=== PATIENT | male | born 1935 | race Caucasian/White ===

== ENCOUNTER 2018-06-20 17:44 | Inpatient (IN) | payer MEDICARE ==
[2018-06-20] MEDS ORDERED: Diltiazem 125 MG/25 ML ONE (18:10)
--- NOTE | 2018-06-20 18:31 | PDOC.FPRHP ---
- History of Present Illness Chief Complaint: Weakness, afib History of Present Illness: 83 yo M with PMH gouth, GERD, dementia, HTN, hypothyroid is transferred from [place] ED for Afib with RVR. History obtained from son, Shaw, and patient. 3 week history of generalized weakness, fatigue. Had a fall a couple weeks ago. Had appt with [facility] today today discuss new LE edema and was sent to ED from there. Asymptomatic. Denies CP, palpitations, SOB. Patient is forgetful, repeats himself. Patient lives at home in [place] with sonShaw [phone]. ED Course: Therapeutic lovenox, dilt drip - Allergies/Adverse Reactions Allergies Allergy/AdvReac Type Severity Reaction Status Date / Time ciprofloxacin Allergy Verified 06/20/18 20:51 Penicillins Allergy Verified 06/20/18 20:51 Sulfa (Sulfonamide Allergy Verified 06/20/18 20:51 Antibiotics) - Home Medications Medication Instructions Recorded Confirmed Type Allopurinol 300 mg PO DAILY 06/21/18 06/21/18 History Benazepril HCl 10 mg PO DAILY 06/21/18 06/21/18 History Cyclobenzaprine [Flexeril] 10 mg PO TID 06/21/18 06/21/18 History Fish Oil 1,000 mg PO DAILY 06/21/18 History Glucosamine HCl 500 mg PO DAILY 06/21/18 06/21/18 History Ibuprofen 200 mg PO TID 06/21/18 06/21/18 History Levothyroxine Sodium 50 mcg PO DAILY 06/21/18 06/21/18 History Memantine HCl [Namenda] 5 mg PO BID 06/21/18 06/21/18 History Multivit-Min/FA/Lycopen/Lutein 1 each PO DAILY 06/21/18 06/21/18 History [Centrum Silver Tablet] - History PMHx: gout, HTN, Alzheimer's, CKD2, hypothyroid, tinnitus PSHx: appendectomy, hernia x2 FHx: HTN Social: Quit smoking in 1970s. No drug use. Drinks a couple beers, 3 times/wk. - Review of Systems General: reports: fatigue. denies: fever/chills, weight/appetite/sleep changes Eyes: denies: vision changes Respiratory: denies: cough, congestion, shortness of breath Cardiovascular: reports: edema. denies: chest pain, palpitation, orthopnea Gastrointestinal: reports: constipation. denies: nausea, vomiting, diarrhea, abdominal pain Genitourinary: denies: dysuria Skin: denies: rashes Musculoskeletal: reports: swelling. denies: pain Neurological: reports: weakness. denies: syncope - Vital signs BP: 166/124, Pulse: 110, Resp: 18, Temp: 98.0 (Oral), Pain: 0, O2 sat: 96 on Room Air, Weight 70 kg - Physical Exam Constitutional: NAD, other (oriented to person. Knows month and day of week but not year. Not oriented to place.) HEENT: normocephalic and atraumatic, PERRLA, EOMI, TM's clear and intact, MMM, oropharynx clear Heart: normal S1/S2 (irregular), pulses present, other (1+ pitting edema BLE) Lungs: CTAB, no respiratory distress, no wheezing Abdomen: soft, non-tender, bowel sounds present Musculoskeletal: normal structure, normal tone Neurological: CN II-XII intact, normal sensation, other (5/5 muscle strength BUE , BLE) Skin: no rash/lesions, good turgor, capillary refill <2 seconds Heme/Lymphatic: no unusual bruising or bleeding FMR H&P: A/P - Plan 83 yo M with PMH hypothyroid, HTN, dementia presents with generalized weakness, mild BLE edema and is admitted for new a fib with RVR. New onset a fib with RVR - Per ED check out, rate was 135-140 before starting dilt drip. Rate now 115- 120s - Continue therapeutic lovenox and dilt drip - Ordered TSH, echo - Trop indeterminate, likely 2/2 demand. Will continue to trend. - Monitor on telemetry - Patient asymptomatic and otherwise stable VS - Plan to consult cardiology in am DEUCE on CKD2 - Cr 1.72 - will give 500mL bolus then continue maintenance fluids. Will give additional bolus as needed Elevated BNP - Also has new onset edema. Strict I/Os, echo as above - with IVF will monitor for signs of volume overload Hypercalcemia - fluids as above - Albumin normal. Will recheck in am along with PTH, phos. Gout - continue home allopurinol - Is on ibuprofen at home. Will continue for now, monitor Cr, and discontinue if needed. Hypothyroid - check TSH - continue home synthroid Dementia - continue home namenda HTN - continue home benazapril Diet: HH Code: FULL Ppx: on therapeutic lovenox Dispo: admit to tele for observation PCP: [facility] Case discussed with Dr. Pope MATSON H&P: Upper Level - Pertinent history 83 yo M with PMHx of reported Alzheimer's dementia presents as [facility] from [place] for a-fib with RVR. Patient is unable to recall events of the day but says he has been feeling a little off. Denies any current, pain, or discomfort. When asked about code status he says "it's written down somewhere" and that his son Shaw would be his primary decision maker. - Pertinent findings VS reviewed - a fib with RVR (rate 90-130), BP improved Gen: awake, alert, oriented x1 HEENT: NCAT, MMM, PERRL, trachea midline, no JVD CV: irregularly irregular rhythm, no murmur noted RESP: CTAB ABD: soft, NTND EXT: 2+ edema to below knee SKIN: no rashes or lesions NEURO: CN intact, oriented x1, strength 5/5 throughout, sensation intact throughout - Plan Date/Time: 06/20/18 1831 83 yo M with PMHx HTN and Alzheimer's disease here with new-onset a fib with RVR 1. A fib with RVR - Dilt drip started in ED - Monitor on tele - Trend trops - Cards consult in a.m. 2. Normocytic anemia - Consider iron studies, could preciptate a fib 3. Hypercalcemia - Fluids, repeat in a.m. with PTH - WNL when checked last fall 4. Elevated BNP - Echo - No known h/o heart failure 5. DEUCE - Gentle fluids with unknown heart function - Contiue to monitor 6. Indet trop - No chest pain - Will continue to trend - EKG a fib with RVR 7. Hypothyroid, gout, GERD, Alzheimer's - see Dr. Garay's note I, Fadia Rodriguez MD, PGY-3, have evaluated this patient and agree with findings/ plan as outlined by internet cafe manager resident. Pertinent changes/additions are listed here.
[2018-06-20] MEDS ORDERED: Acetaminophen 325 MG TAB PO PRN (19:44)
[2018-06-20] MEDS ORDERED: Senokot S 8.6-50 MG TAB PO PRN (19:44)
[2018-06-20] MEDS ORDERED: Ondansetron ODT 4 MG TAB PO PRN (19:44)
[2018-06-20] MEDS ORDERED: Lactated Ringer's 500 ML IV SCH (20:00)
[2018-06-20] MEDS ORDERED: Lactated Ringer's 1,000 ML IV SCH (20:00)
[2018-06-20 20:23] VITALS: BMI 22.6
[2018-06-20] MEDS ORDERED: Sodium Chloride 0.9% 500 ML IVPB SCH (21:45)
[2018-06-20] MEDS: Enoxaparin Sodium 80 MG/0.8 ML SYRINGE SC SCH (22:08)
[2018-06-20 22:18] LABS: Troponin I 0.041 ng/mL (< 0.028)
[2018-06-20] MEDS: Sodium Chloride 0.9% 1,000 ML IV SCH (22:32)
[2018-06-21] MEDS ORDERED: Melatonin 3 MG TAB PO PRN (00:29)
[2018-06-21 01:07] LABS: Troponin I 0.048 ng/mL (< 0.028)
[2018-06-21] MEDS: Levothyroxine Sodium 50 MCG TAB PO SCH (03:30)
[2018-06-21 05:05] LABS: #Eosinphils 0.1 thou/uL (0.0-0.7); #Lymphocytes 1.4 thou/uL (1.20-3.40); #Monocytes 0.6 thou/uL (0.11-0.59); #Neutrophils 1.7 thou/uL (1.40-6.50); %Basophils 0.8 % (0.0-1.0); %Eosinophils 2.2 % (0.0-10.0); %Lymphocytes 37.7 % (21.0-51.0); %Monocytes 14.9 % (0.0-10.0); %Neutrophils 44.3 % (42.0-75.0); Hemoglobin 10.5 g/dL (14.0-18.0); Mean Corpuscular HGB CONC 32.8 g/dL (32.0-36.0); Mean Corpuscular Hemoglobin 31.7 pg (27.0-31.0); Mean Corpuscular Volume 96.7 fL (78.0-98.0); Mean Platelet Volume 6.7 fL (7.4-10.4); Platelet Count 173 thou/uL (130-400); Red Blood Cell (RBC) Count 3.31 mill/uL (4.70-6.10); White Blood Cell (WBC) Count 3.7 thou/uL (4.8-10.8)
[2018-06-21 05:14] LABS: Anion Gap 13 mmol/L (10-20); BUN (Urea Nitrogen) 25 mg/dL (8.4-25.7); Calc. Creatinine Clearance 37 mL/min (70-130); Calcium 11.6 mg/dL (7.8-10.44); Carbon Dioxide 24 mmol/L (23-31); Chloride 109 mmol/L (98-107); Estimated GFR-MDRD 47; Glucose 75 mg/dL (83-110); Potassium 3.8 mmol/L (3.5-5.1); Sodium 142 mmol/L (136-145)
[2018-06-21 05:15] LABS: Phosphorus 3.2 mg/dL (2.3-4.7)
--- NOTE | 2018-06-21 06:43 | PDOC.FM ---
- Subjective Subjective: Alert and oriented only to person and place. Not to time or situation. Denies chest pain, shortness of breath, heart palpitations. No overnight events. - Objective MAR Reviewed: Yes Vital Signs & Weight: Vital Signs (12 hours) Temp Pulse Resp BP Pulse Ox 06/21/18 03:26 97.7 F 83 16 105/63 92 L 06/20/18 20:26 97.5 F L 94 16 137/73 94 L Weight Weight 67.495 kg I&O: 06/19/18 06/20/18 06/21/18 06:59 06:59 06:59 Intake Total 1705 Output Total 175 Balance 1530 Result Diagrams: 06/21/18 04:27 06/21/18 04:27 Phys Exam - Physical Examination Constitutional: NAD HEENT: moist MMs Neck: supple Respiratory: no wheezing, clear to auscultation bilateral Afib, systolic murmur Gastrointestinal: soft, non-tender, positive bowel sounds Musculoskeletal: no edema Neurological: moves all 4 limbs Psychiatric: normal affect Deviation from normal: A&O to person and place only Skin: no rash Dx/Plan - Plan Plan: 83 yo M with PMH hypothyroid, HTN, dementia presents with generalized weakness, mild BLE edema and is admitted for new a fib with RVR. New onset a fib with RVR - Rate 80-90's - Continue therapeutic lovenox and dilt drip - Nml TSH, echo pending - Trops indeterminate, likely 2/2 demand. - Consulted Cardiology DEUCE on CKD2 - Improving, continue to monitor with daily BMP Elevated BNP - Strict I/Os - Echo ordered - Monitor for signs of volume overload Hypercalcemia, resolved Gout - Continue home Ibuprofen and Allopurinol. - Monitor Cr Hypothyroid - TSH nml - Continue home synthroid Dementia - Continue home namenda HTN - Continue home benazapril Code Status: FULL DVT ppx: on therapeutic lovenox PCP: Dr Gasca Addendum - Attending - Attending Attestation Date/Time: 06/21/18 8121 I personally evaluated the patient and discussed the management with Dr. March. I agree with the History, Examination, Assessment and Plan documented above with any addition or exceptions noted below. The patient has new onset atrial fibrillation on a diltiazem drip. Rate is controlled. Echo pending. Cardiology is being consulted. Will continue anticoagulation.
[2018-06-21] MEDS: Sodium Chloride 0.9% 1,000 ML IV SCH ×2 (07:04→07:24)
[2018-06-21] MEDS: Allopurinol 300 MG TAB PO SCH (08:21)
[2018-06-21] MEDS: Ibuprofen 200 MG TAB PO SCH ×3 (08:22→21:58)
[2018-06-21] MEDS: Multivitamins CHEW w/Iron Tablet PO SCH ×2 (08:22→08:23)
[2018-06-21] MEDS: Cyclobenzaprine 10 MG TAB PO SCH ×3 (08:22→21:58)
[2018-06-21] MEDS: Enoxaparin Sodium 80 MG/0.8 ML SYRINGE SC SCH (08:22)
[2018-06-21] MEDS ORDERED: Prevnar 13-Val Conj/PF 0.5 ML SYRINGE IM ONE (09:00)
[2018-06-21 12:41] LABS: Reference Lab Name LABCORP
--- NOTE | 2018-06-21 14:58 | CON ---
DATE OF CONSULTATION: 06/21/2018 REASON FOR CONSULTATION: Atrial fibrillation with RVR. HISTORY OF PRESENT ILLNESS: Mr. Mckeon is a pleasant 83-year-old black gentleman, who comes to the hospital for having lower extremity edema and worsening generalized weakness. He was seen by his PCP in [place], and he was found to be in atrial fibrillation with RVR, so transferred over for further evaluation and care. He was started on a diltiazem drip and is better rate controlled now. PAST MEDICAL HISTORY: 1. History of gout. 2. Hypertension. 3. Alzheimer dementia, mild. 4. Hypothyroidism. 5. Tinnitus. PAST SURGICAL HISTORY: 1. Appendectomy. 2. Hernia surgery x2. FAMILY HISTORY: Noncontributory. SOCIAL HISTORY: Quit smoking in 1970s; otherwise, no tobacco or drugs. Drinks 1 or 2 beers about 3 times a week. OUTPATIENT MEDICATIONS: 1. Allopurinol 300 mg a day. 2. Benazepril 10 mg a day. 3. Cyclobenzaprine 10 mg t.i.d. 4. Fish oil. 5. Glucosamine. 6. Ibuprofen. 7. Levothyroxine 50 mcg a day. 8. Memantine. 9. Multivitamin daily. ALLERGIES: 1. CIPRO. 2. PENICILLIN. 3. SULFA DRUGS. REVIEW OF SYSTEMS: A 12-point review of systems was done and was found to be negative unless stated in history of present illness. PHYSICAL EXAMINATION: VITAL SIGNS: Temperature 97.5, pulse 89, respiratory rate 16, saturating 95% on room air, and blood pressure 107/63. GENERAL: Awake, alert, and oriented x3, in no distress. HEENT: Normocephalic and atraumatic. NECK: Supple. LUNGS: Clear. CARDIOVASCULAR: S1 and S2. No S3 or S4. Irregularly irregular heart rate in the 80s to low 100s. ABDOMEN: Soft. Positive bowel sounds. EXTREMITIES: No edema. SKIN: Warm and dry. LABORATORY DATA: Laboratory work was reviewed. CBC with a white count of 3, hemoglobin of 10, hematocrit of 32, and platelet count of 173. Chemistry with creatinine of 1.43, GFR of 47. ASSESSMENT: 1. Atrial fibrillation with rapid ventricular response, new onset. 2. Hypertension. PLAN: 1. We spoke with Mr. Mckeon and his family, he has a daughter and a grandson in the room, about possibly doing rate control versus rhythm control with cardioversion. He would prefer to do rhythm control. He would like to proceed with DWAINE cardioversion. We will plan on continuing full anticoagulation. I will switch him to Ronnie colón, so he does not have to get shots anymore, and I will look at his echocardiogram, and depending on what his LV function is, we will decide either on flecainide or just amiodarone if he has LV dysfunction. 2. We spoke in length about the risks and benefits of the procedure. Risks included, but not limited to VT, need for repeat cardioversions, esophageal rupture, teeth injury, vocal cord injury. The patient understands and verbalized understanding of this and agrees to proceed. 3. Plan on the DWAINE and cardioversion tomorrow. Job ID: [id number]
[2018-06-21] MEDS ORDERED: Flecainide 50 MG TAB PO SCH (15:00)
[2018-06-21] MEDS: Flecainide 50 MG TAB PO SCH (21:58)
[2018-06-21] MEDS: Apixaban 2.5 MG TAB PO SCH (21:58)
--- NOTE | 2018-06-22 06:18 | PDOC.FM ---
- Subjective Subjective: Feeling "very average." Just came back from cardioversion. Now in NSR. Denies SOB, chest pain. - Objective MAR Reviewed: Yes Vital Signs & Weight: Vital Signs (12 hours) Temp Pulse Resp BP Pulse Ox 06/22/18 04:00 94 18 130/71 06/21/18 23:29 105 H 138/75 06/21/18 20:00 92 L 06/21/18 19:29 97.5 F L 109 H 16 128/82 92 L Weight Weight 67.495 kg I&O: 06/20/18 06/21/18 06/22/18 06:59 06:59 06:59 Intake Total 1705 Output Total 175 Balance 1530 Result Diagrams: 06/22/18 11:28 06/22/18 11:28 Phys Exam - Physical Examination Constitutional: NAD HEENT: moist MMs Neck: supple Respiratory: no wheezing, clear to auscultation bilateral Cardiovascular: RRR Gastrointestinal: soft, non-tender, positive bowel sounds Musculoskeletal: no edema Neurological: moves all 4 limbs Psychiatric: normal affect, A&O x 3 Skin: no rash Dx/Plan (1) Afib Code(s): I48.91 - UNSPECIFIED ATRIAL FIBRILLATION Status: Acute - Plan Plan: 83 yo M with PMH hypothyroid, HTN, dementia presents with generalized weakness, mild BLE edema and is admitted for new a fib with RVR. New onset a fib with RVR - Rate low 100's - Continue therapeutic lovenox and dilt drip - Nml TSH, echo: nml EF in Afib - Trops indeterminate, likely 2/2 demand. - Consulted Cardiology, apprec recs - On Eliquis for cardioversion today DEUCE on CKD2 - Improving, continue to monitor with daily BMP Elevated BNP - Strict I/Os, daily wts - Echo: EF 60-65%, mild MR, TR. Mild AV sclerosis - Monitor for signs of volume overload Hypercalcemia, resolved Gout - Continue home Ibuprofen and Allopurinol. - Monitor Cr Hypothyroid - TSH nml - Continue home synthroid Dementia - Continue home namenda HTN - Continue home benazapril Code Status: FULL DVT ppx: on therapeutic lovenox PCP: Dr Gasca Addendum - Attending - Attending Attestation Date/Time: 06/22/18 1014 I personally evaluated the patient and discussed the management with Dr. March. I agree with the History, Examination, Assessment and Plan documented above with any addition or exceptions noted below. The patient went for cardioversion this morning and is in a sinus rhythm. will f/u cardiology but may d/c if cleared by cards.
[2018-06-22] MEDS: Levothyroxine Sodium 50 MCG TAB PO SCH (07:03)
[2018-06-22] MEDS ORDERED: PROPOFOL 20 ML ONE (07:39)
[2018-06-22] MEDS: Cyclobenzaprine 10 MG TAB PO SCH ×2 (08:49→15:08)
[2018-06-22] MEDS: Apixaban 2.5 MG TAB PO SCH (08:49)
[2018-06-22] MEDS: Flecainide 50 MG TAB PO SCH (08:49)
[2018-06-22] MEDS: Ibuprofen 200 MG TAB PO SCH ×2 (08:49→15:08)
[2018-06-22] MEDS: Allopurinol 300 MG TAB PO SCH (08:49)
[2018-06-22] MEDS: Multivitamins CHEW w/Iron Tablet PO SCH (08:50)
[2018-06-22 11:38] LABS: #Eosinphils 0.1 thou/uL (0.0-0.7); #Lymphocytes 0.9 thou/uL (1.20-3.40); #Monocytes 0.4 thou/uL (0.11-0.59); #Neutrophils 1.1 thou/uL (1.40-6.50); %Basophils 1.3 % (0.0-1.0); %Eosinophils 2.5 % (0.0-10.0); %Lymphocytes 36.4 % (21.0-51.0); %Monocytes 14.6 % (0.0-10.0); %Neutrophils 45.2 % (42.0-75.0); Mean Corpuscular HGB CONC 33.1 g/dL (32.0-36.0); Mean Corpuscular Hemoglobin 31.7 pg (27.0-31.0); Mean Corpuscular Volume 95.6 fL (78.0-98.0); Mean Platelet Volume 6.1 fL (7.4-10.4); Platelet Count 154 thou/uL (130-400); Red Blood Cell (RBC) Count 3.47 mill/uL (4.70-6.10); White Blood Cell (WBC) Count 2.4 thou/uL (4.8-10.8)
[2018-06-22 12:10] LABS: ALT (SGPT) 14 U/L (8-55); AST (SGOT) 17 U/L (5-34); Albumin 3.1 g/dL (3.4-4.8); Alkaline Phosphatase 84 U/L (40-150); Anion Gap 14 mmol/L (10-20); BUN (Urea Nitrogen) 21 mg/dL (8.4-25.7); Bilirubin, Total 0.7 mg/dL (0.2-1.2); Calc. Creatinine Clearance 34 mL/min (70-130); Calcium 11.5 mg/dL (7.8-10.44); Carbon Dioxide 23 mmol/L (23-31); Chloride 109 mmol/L (98-107); Estimated GFR-MDRD 43; Globulin 2.3 g/dL (2.4-3.5); Glucose 106 mg/dL (83-110); Potassium 3.5 mmol/L (3.5-5.1); Protein, Total 5.4 g/dL (5.8-8.1); Sodium 142 mmol/L (136-145)
[2018-06-22] MEDS ORDERED: Lidocaine 1% PF 5 ML VIAL ONE (15:29)
[2018-06-22] MEDS ORDERED: PROPOFOL 200 MG/20 ML VIAL ONE (15:29)
[2018-06-22 15:31] VITALS: BP 152/78; TEMP 98
--- NOTE | 2018-06-22 15:44 | ECHO ---
DATE OF SERVICE: 06/22/18 PREPROCEDURE DIAGNOSIS: Atrial fibrillation with RVR. The Anesthesiology department provided with sedation for the patient. Please see their notes for det ails. After adequate sedation was achieved, transesophageal probe was inserted into the mouth and into the esophagus. Multiplanar views were obtained. Left ventricle is normal size, normal wall thickness. Systolic function appears to be normal. Estima shannon EF at about 55%. Left atrium is mildly dilated. Right atrium is mildly dilated. The right ventricle is normal size with normal systolic function. The left atrial appendage is a large appendage with no evidence of mass or thrombus. Aortic valve is heavily calcified with reduced cusp opening. Planimetry of the valve shows the valve area of 1.6 cm/s. Mild aortic valve stenosis. There is also mild aortic insufficiency. Mitral valve is structurally normal. There is mild MR. Tricuspid valve is structurally normal. There is mild TR. Pulmonary valve is structurally normal. CONCLUSIONS: 1. Normal LV systolic function, EF at 55%. 2. Biatrial enlargement. 3. Left atrial appendage without any mass or thrombus. 4. Calcified aortic valve with mild aortic stenosis and mild aortic insufficiency. 4. Mild MR. 5. Mild TR.
--- NOTE | 2018-06-22 15:51 | OP ---
DATE OF PROCEDURE: 06/22/18 PROCEDURE DIAGNOSIS: Atrial flutter. PROCEDURES PERFORMED: Direct current cardioversion. SUMMARY: The patient is a pleasant 83-year-old white gentleman who was brought down to the procedural area for a planned DWAINE cardioversion. Please see DWAINE report for details. After adequate anesthesia was achieved by the anesthesia department, one single synchronized shock wa s delivered at 100 joules successfully converting him from atrial fibrillation into sinus rhythm with PACs. The patient tolerated the procedure well. RECOMMENDATIONS: 1. Continued antiarrhythmic and anticoagulation. 2. Follow-up in the office in one month.
--- NOTE | 2018-06-25 10:04 | DIS ---
DATE OF ADMISSION: 06/21/2018 DATE OF DISCHARGE: 06/22/2018 RESIDENT: Antoinette March MD, PGY-1. ADMITTING ATTENDING: Aleksandr Patricio MD DISCHARGE ATTENDING: Gloria Dyer MD CONSULTS: Cardiology. PROCEDURES: 1. Echocardiogram, EF 60% to 65%, atrial fibrillation during study. Moderately dilated left atrium. Mitral annular calcification. Mild mitral and tricuspid regurgitation. Mild aortic valve stenosis. 2. DWAINE with cardioversion. PRIMARY DIAGNOSIS: New onset atrial fibrillation with RVR. SECONDARY DIAGNOSES: 1. Acute kidney injury on chronic kidney disease 2. 2. Elevated BNP. 3. Hypercalcemia, resolved. 4. Gout. 5. Hypothyroidism. 6. Dementia. 7. Hypertension. DISCHARGE MEDICATIONS: 1. Allopurinol 300 mg daily. 2. Apixaban 2.5 mg b.i.d. 3. Benazepril 10 mg daily. 4. Flexeril 10 mg t.i.d. 5. Flecainide 50 mg q.12 hours. 6. Ibuprofen 200 mg t.i.d. p.r.n. 7. Levothyroxine sodium 50 mcg daily. 8. Melatonin 3 mg daily. 9. Memantine 5 mg b.i.d. 10. Multivitamin once daily. 11. Senokot 2 tabs p.o. b.i.d. 12. Glucosamine 500 mg daily. HISTORY OF PRESENT ILLNESS/HOSPITAL COURSE: Mr. Mckeon is an 83-year-old male with past medical history of GERD, dementia, hypertension, hypothyroidism, who was transferred from [facility] for atrial fibrillation with RVR. He had had a 3-week history of generalized weakness and fatigue and a fall couple days prior. The patient had an appointment with Dr. Gasca, nurse practitioner, the day of admission to discuss new lower extremity edema and was sent to the ED from there. When the patient was noted to be in atrial fibrillation, he was asymptomatic. Denied any chest pain, palpitations, or shortness of breath. The patient lives at home with his son, Shaw Mckeon. When he arrived at the [place] ED, he was started on therapeutic Lovenox and diltiazem drip. His blood pressure was 166/124, pulse 110. He is afebrile. Oriented to person and month, but not year or place. He had irregularly irregular rhythm with 1+ pitting edema in bilateral lower extremities. Tropes were indeterminate but stable likely secondary to demand ischemia. Cardiology was consulted, who had discussion with family about rate versus rhythm control. Family and patient decided to proceed with cardioversion and DWAINE, and cardioversion was performed on 06/22/2018, successful. The patient with normal sinus rhythm at discharge. He was started on flecainide and was anticoagulated with Eliquis prior to cardioversion. This was continued at discharge. The patient did have other notable labs of creatinine 1.72 and GFR 38 at admission. This improved with hydration. GFR 43 at discharge and creatinine 1.54. PTH was low at 15.8. Vitamin D was checked, that was 35. TSH was normal. PTH related peptide is still pending. The patient did have an elevated BNP at admission 254. Echo was performed, showed no systolic heart failure. Other DWAINE results are pending after cardioversion to evaluate for diastolic heart failure. The patient did have normocytic anemia of 12.7 at admission and consider outpatient workup. The patient had hypercalcemia at 13.4, 11.5 at discharge. Vitamin D was normal. PTH related peptide is pending. The patient did have an indeterminate troponin, this is stable. EKG showed atrial fibrillation with RVR, this is likely demand ischemia. The patient denies any chest pain. The patient has a history of hypothyroidism, gout, GERD, and Alzheimer's that were managed with home medications. DISPOSITION: Stable. DISCHARGE INSTRUCTIONS: 1. Location: Home with Home Health. 2. Diet: Heart healthy. 3. Activity: As tolerated. 4. Followup: Follow up with Dr. Gasca within 7 days and follow up with Cardiology, Dr. Jerez, within 4 weeks. Job ID: [id number]
== END 2018-06-22 17:17 | disposition home or self-care (01) | DRG 309 ==
LOC: ERS 17:44 → 2SW 18:15 → OBSVTOIN 06-21 09:29
PROVIDERS: ADMIT Family Medicine; ATTEND Family Medicine
PROC: B246ZZ4 Ultrasonography of Right and Left Heart, Transesophageal (ICD-10-PCS; principal; 2018-06-21)
PROC: 5A2204Z Restoration of Cardiac Rhythm, Single (ICD-10-PCS; 2018-06-22)
DX: I48.91 Unspecified atrial fibrillation (principal); N17.9 Acute kidney failure, unspecified; K21.9 Gastro-esophageal reflux disease without esophagitis; M10.9 Gout, unspecified; E03.9 Hypothyroidism, unspecified; N18.2 Chronic kidney disease, stage 2 (mild); I12.9 Hypertensive chronic kidney disease with stage 1 through stage 4 chronic kidney disease, or unspecified chronic kidney disease; G30.9 Alzheimer's disease, unspecified; F02.80 Dementia in other diseases classified elsewhere, unspecified severity, without behavioral disturbance, psychotic disturbance, mood disturbance, and anxiety; E83.52 Hypercalcemia; D63.1 Anemia in chronic kidney disease; I08.3 Combined rheumatic disorders of mitral, aortic and tricuspid valves
CPT/HCPCS: 36415; 80048; 82306; 82553; 83735; 83970; 84100; 84443; 84484; 85025; 92960; 93005; 93010; 93306; 93312; 96365; 96366; 96376; J1650; J2704; J3490

== ENCOUNTER 2018-06-26 10:05 | Observation (INO) | payer MEDICARE, BC ==
[2018-06-26] MEDS ORDERED: Lidocaine 1% w/Epinephrine 1:100K 20 ML VIAL ONE (10:34)
--- NOTE | 2018-06-26 10:46 | CT ---
CT Brain WO Con HISTORY: Head injury with laceration. COMPARISON: None. FINDINGS: There is generalized ventricular and sulcal prominence. There are no signs of intracerebral hemorrhage or extra-axial fluid collections. The mastoid air cells and visualized sinuses are clear. A right scalp laceration is noted. IMPRESSION: No acute intracranial abnormalities.
--- NOTE | 2018-06-26 10:48 | CT ---
CT Cervical Spine WO Con Indication: Pain/Injury COMPARISON: None FINDINGS: Acute fracture/subluxation: No acute fracture. Grade 1 spondylolisthesis at C3-4 and mild retrolisthe sis at C4-5 present which may relate to degenerative process, given facet arthropathy. Spinal alignment: Likely chronic degenerative malalignment as above. There is focal kyphosis centered at the C4 level. Vertebral body heights: Maintained. Cervical spine degenerative change: Multilevel moderate degenerative change IMPRESSION: No acute osseous abnormality.
[2018-06-26 11:15] LABS: #Lymphocytes 1.3 thou/uL (1.20-3.40); #Monocytes 0.6 thou/uL (0.11-0.59); #Neutrophils 1.9 thou/uL (1.40-6.50); %Basophils 0.3 % (0.0-1.0); %Eosinophils 1.1 % (0.0-10.0); %Lymphocytes 33.3 % (21.0-51.0); %Monocytes 14.6 % (0.0-10.0); %Neutrophils 50.8 % (42.0-75.0); Hemoglobin 11.4 g/dL (14.0-18.0); Mean Corpuscular HGB CONC 32.9 g/dL (32.0-36.0); Mean Corpuscular Hemoglobin 31.4 pg (27.0-31.0); Mean Corpuscular Volume 95.5 fL (78.0-98.0); Mean Platelet Volume 6.6 fL (7.4-10.4); Platelet Count 191 thou/uL (130-400); RBC Distribution Width 13.3 % (11.5-14.5); Red Blood Cell (RBC) Count 3.62 mill/uL (4.70-6.10); White Blood Cell (WBC) Count 3.8 thou/uL (4.8-10.8)
[2018-06-26 11:43] LABS: ALT (SGPT) 17 U/L (8-55); AST (SGOT) 20 U/L (5-34); Albumin 3.4 g/dL (3.4-4.8); Alkaline Phosphatase 91 U/L (40-150); Anion Gap 16 mmol/L (10-20); BUN (Urea Nitrogen) 24 mg/dL (8.4-25.7); Bilirubin, Total 0.6 mg/dL (0.2-1.2); Calc. Creatinine Clearance 0 mL/min (70-130); Carbon Dioxide 26 mmol/L (23-31); Chloride 108 mmol/L (98-107); Estimated GFR-MDRD 43; Globulin 2.3 g/dL (2.4-3.5); Glucose 137 mg/dL (83-110); Potassium 3.6 mmol/L (3.5-5.1); Protein, Total 5.7 g/dL (5.8-8.1); Sodium 146 mmol/L (136-145)
[2018-06-26 11:53] LABS: Calcium 12.1 mg/dL (7.8-10.44)
[2018-06-26 12:01] LABS: CKMB 4.5 ng/mL (0-6.6)
[2018-06-26 14:29] LABS: Troponin I 0.057 ng/mL (< 0.028)
--- NOTE | 2018-06-26 15:51 | PDOC.FPRHP ---
- History of Present Illness Chief Complaint: fall History of Present Illness: 83 yo M with PMH a fib s/p recent cardioversion, hypothyroid, HTN, dementia, gout presents to ED after mechanical fall at home. He let go of walker while trying to take off sweatshirt and hit his head against the wall. Could have been discharged from that standpoint from ED, however is admitted for noted indeterminate troponin. Patient denies CP, heart palpitations, SOB, fever, chills. Was discharged 4 days ago to home and had been doing well. - Allergies/Adverse Reactions Allergies Allergy/AdvReac Type Severity Reaction Status Date / Time ciprofloxacin Allergy Verified 06/26/18 17:57 Penicillins Allergy Verified 06/26/18 17:57 Sulfa (Sulfonamide Allergy Verified 06/26/18 17:57 Antibiotics) - Home Medications Medication Instructions Recorded Confirmed Type Allopurinol 300 mg PO DAILY 06/21/18 06/26/18 History Benazepril HCl 10 mg PO DAILY 06/21/18 06/26/18 History Cyclobenzaprine [Flexeril] 10 mg PO TID 06/21/18 06/26/18 History Levothyroxine Sodium 50 mcg PO DAILY 06/21/18 06/26/18 History Memantine HCl [Namenda] 5 mg PO BID 06/21/18 06/26/18 History Multivit-Min/FA/Lycopen/Lutein 1 each PO DAILY 06/21/18 06/26/18 History [Centrum Silver Tablet] Apixaban [Eliquis] 2.5 mg PO BID #60 tab 06/22/18 06/26/18 Rx Flecainide [Tambocor] 50 mg PO Q12HR #60 tab 06/22/18 06/26/18 Rx Melatonin 3 mg PO HSPRN PRN #30 tab 06/22/18 06/26/18 Rx Sennosides/Docusate Sodium 2 tab PO BID PRN #60 tab 06/22/18 06/26/18 Rx [Senokot S] - History PMHx: gout, HTN, alzheimer's CKD2, hypothyroid, tinnitus, afib s/p cardioversion 06/2018 PSHx: appendectomy, herniax2 FHx: HTN Social: quit smoking in the 1970s. No drug use. Drinks a couple beers, 3 times per week. - Review of Systems General: denies: fever/chills, fatigue Eyes: denies: vision changes ENT: denies: nasal congestion Respiratory: denies: cough, shortness of breath Cardiovascular: denies: chest pain, palpitation, edema Gastrointestinal: denies: nausea, vomiting, diarrhea Genitourinary: denies: dysuria Skin: reports: lesions (head laceration). denies: rashes Musculoskeletal: denies: pain, tenderness Neurological: reports: weakness. denies: syncope - Vital signs BP: 158/85 HR: 92 RR: 17 Pox: 97% on RA Wt: 68 kg - Physical Exam Constitutional: NAD HEENT: PERRLA, grossly normal vision, grossly normal hearing, MMM, oropharynx clear, other (scalp laceration with arvind in place) Heart: no murmurs/rubs/gallops, pulses present, no edema, other (irregular rhythm) Lungs: CTAB, no respiratory distress, no wheezing Abdomen: soft, non-tender, bowel sounds present Musculoskeletal: normal structure, normal tone Neurological: no focal deficit Skin: no rash/lesions, good turgor FMR H&P: Results - Labs Result Diagrams: 06/27/18 04:20 06/27/18 04:20 Lab results: WBC 3.8 thou/uL (4.8-10.8) L 06/26/18 10:43 Hgb 11.4 g/dL (14.0-18.0) L 06/26/18 10:43 Hct 34.6 % (42.0-52.0) L 06/26/18 10:43 MCV 95.5 fL (78.0-98.0) 06/26/18 10:43 Plt Count 191 thou/uL (130-400) 06/26/18 10:43 Neutrophils % 50.8 % (42.0-75.0) 06/26/18 10:43 Sodium 146 mmol/L (136-145) H 06/26/18 10:43 Potassium 3.6 mmol/L (3.5-5.1) 06/26/18 10:43 Chloride 108 mmol/L (98-107) H 06/26/18 10:43 Carbon Dioxide 26 mmol/L (23-31) 06/26/18 10:43 BUN 24 mg/dL (8.4-25.7) 06/26/18 10:43 Creatinine 1.54 mg/dL (0.7-1.3) H 06/26/18 10:43 Glucose 137 mg/dL (83-110) H 06/26/18 10:43 Calcium 12.1 mg/dL (7.8-10.44) H* 06/26/18 10:43 Total Bilirubin 0.6 mg/dL (0.2-1.2) 06/26/18 10:43 AST 20 U/L (5-34) 06/26/18 10:43 ALT 17 U/L (8-55) 06/26/18 10:43 Alkaline Phosphatase 91 U/L (40-150) 06/26/18 10:43 CK-MB (CK-2) 4.5 ng/mL (0-6.6) 06/26/18 10:43 Serum Total Protein 5.7 g/dL (5.8-8.1) L 06/26/18 10:43 Albumin 3.4 g/dL (3.4-4.8) 06/26/18 10:43 FMR H&P: A/P - Problem List (1) Elevated troponin Current Visit: Yes Status: Acute Code(s): R74.8 - ABNORMAL LEVELS OF OTHER SERUM ENZYMES (2) Fall Current Visit: Yes Status: Acute Code(s): W19.XXXA - UNSPECIFIED FALL, INITIAL ENCOUNTER (3) Hypercalcemia Current Visit: Yes Status: Acute Code(s): E83.52 - HYPERCALCEMIA (4) HTN (hypertension) Current Visit: Yes Status: Acute Code(s): I10 - ESSENTIAL (PRIMARY) HYPERTENSION (5) Gout Current Visit: Yes Status: Acute Code(s): M10.9 - GOUT, UNSPECIFIED (6) Hypothyroid Current Visit: Yes Status: Acute Code(s): E03.9 - HYPOTHYROIDISM, UNSPECIFIED (7) Normocytic anemia Current Visit: Yes Status: Acute Code(s): D64.9 - ANEMIA, UNSPECIFIED (8) Leukopenia Current Visit: Yes Status: Acute Code(s): D72.819 - DECREASED WHITE BLOOD CELL COUNT, UNSPECIFIED (9) CKD (chronic kidney disease) Current Visit: Yes Status: Acute Code(s): N18.9 - CHRONIC KIDNEY DISEASE, UNSPECIFIED - Plan 83 yo M with PMH a fib s/p recent cardioversion presents to ED after mechanical fall and is admitted for observation for indeterminate troponin. Indeterminate troponin - 0.039, 0.057, will continue to trend - denies chest pain. - EKG a fib w/RVR, rate 118 Mechanical fall - 2/2 unsteady gait - CT head negative - s/p scalp arvind in ED for laceration - PT consulted Hypercalcemia - recent workup on last admission included Vit D and PTH (low) - will get ionized calcium - LR @ 125 and recheck in am - consider further outpatient workup, including for malignancy A fib w/ RVR - s/p successful cardioversion 06/22/18 and discharged in NSR - continue flecainide. Hold eliquis - will consult Dr. Jerez in am Chronic normocytic anemia - Hgb 11.4, has been noted on recent admission as well, outpatient workup Leukopenia - WBC 3.8. This is chronic, >3 years. Outpatient workup as above. CKD3 - Cr 1.54, at baseline compared to prior admission Gout - continue home allopurinol Hypothyroid - recent TSH wnl - continue home synthroid HTN - continue home benazapril Dementia - continue home memantine Diet: HH Ppx: SCDs (held home elequis for now) PCP: Campos Dispo: admit to telemetry for observation Case discussed with Dr. Patricio FMNik H&P: Upper Level - Pertinent history 83 yo M w/ PMH of A fib w/ rvr and recent cardioversion, hypercalcemia, anemia of chronic disease, HLD and HTN who presents from home after a fall. Pt reports he was putting his shirt on and lost his balance. Pt suffered a laceration on the posterior aspect of right scalp. He denied any loss of consciousness or pre- syncopal episodes. No palpitations, CP, SOB, NVDC. Denies Numbness, tingling, weakness. He had C spine and head imaging which were negative for acute disease processes. He was initially going to be sent home; however, he was noted to have elevated troponins which increased and found to be in afib @ a rate of 120s. He was given cardizem in the ED which reduced his rate to 80s-90s. He remained asymptomatic throughout all of this. ROS: Negative unless otherwise mentioned above. - Pertinent findings PE: Gen: NAD HEENT: Laceration post scalp, hemostatic, PERRLA, EOMI Card: ireegular rate irregular rhythm, No MRG Resp: CTABL no WRR Abd: Soft NTND, BSX4 Neuro: No focal deficit Extremities: No clubbin, cyanosis or edema. - Plan Date/Time: 06/26/18 1550 I, Nitin Stiles DO, have evaluated this patient and agree with findings/ plan as outlined by [facility]ba intern resident. Pertinent changes/additions are listed here. 1) Mechanical Fall: - currently stable will cont to monitor for continued bleeding - hold PM eliquis, consider restarting in AM - CT head negative 2) Elevated troponins: - Pt was in afib w/ RVR, this is likely related to demand ischemia from that; will trend - admit tele obs - he remains CP free, rate currently controlled 3) Hypercalcemia: - will give IVF and trend - Low PTH last admission and Vit D WNL - given elevated monocytes and age consider malignant etiology - stable and likely does not need continued IP workup Dispo: stable, admit tele obs and will trend troponins. Consider am cardiology consultation. Pts rate currently controlled. Addendum - Attending - Attending Attestation Date/Time: 06/27/18 0815 I personally evaluated the patient and discussed the management with Dr. Garay at time of admission yesterday. I agree with the History, Examination, Assessment and Plan documented above with any addition or exceptions noted below.
[2018-06-26 17:52] VITALS: BMI 21.6
[2018-06-26] MEDS ORDERED: Lactated Ringer's 1,000 ML IV SCH (18:04)
[2018-06-26] MEDS ORDERED: Ondansetron ODT 4 MG TAB PO PRN (18:04)
[2018-06-26] MEDS ORDERED: Acetaminophen 325 MG TAB PO PRN (18:04)
[2018-06-26] MEDS ORDERED: Ondansetron PF 4 MG/2 ML Vial IVP PRN (18:04)
[2018-06-26] MEDS ORDERED: Melatonin 3 MG TAB PO PRN (18:36)
[2018-06-26] MEDS ORDERED: Senokot S 8.6-50 MG TAB PO PRN (18:36)
[2018-06-26 19:09] LABS: Troponin I 0.051 ng/mL (< 0.028)
[2018-06-26] MEDS: Cyclobenzaprine 10 MG TAB PO SCH (20:02)
[2018-06-26] MEDS: Flecainide 50 MG TAB PO SCH (20:02)
[2018-06-26] MEDS: Sodium Chloride 0.9% 1,000 ML IV SCH (20:49)
[2018-06-27] MEDS: Sodium Chloride 0.9% 1,000 ML IV SCH ×2 (04:23→11:21)
[2018-06-27 05:16] LABS: #Eosinphils 0.1 thou/uL (0.0-0.7); #Lymphocytes 1.2 thou/uL (1.20-3.40); #Monocytes 0.7 thou/uL (0.11-0.59); #Neutrophils 2.9 thou/uL (1.40-6.50); %Basophils 0.4 % (0.0-1.0); %Eosinophils 1.4 % (0.0-10.0); %Lymphocytes 25.2 % (21.0-51.0); %Monocytes 13.8 % (0.0-10.0); %Neutrophils 59.2 % (42.0-75.0); Hemoglobin 10.3 g/dL (14.0-18.0); Mean Corpuscular HGB CONC 31.9 g/dL (32.0-36.0); Mean Corpuscular Hemoglobin 30.7 pg (27.0-31.0); Mean Corpuscular Volume 96.2 fL (78.0-98.0); Mean Platelet Volume 6.6 fL (7.4-10.4); Platelet Count 184 thou/uL (130-400); RBC Distribution Width 13.4 % (11.5-14.5); Red Blood Cell (RBC) Count 3.35 mill/uL (4.70-6.10); White Blood Cell (WBC) Count 4.9 thou/uL (4.8-10.8)
[2018-06-27 05:35] LABS: Anion Gap 13 mmol/L (10-20); BUN (Urea Nitrogen) 20 mg/dL (8.4-25.7); Calc. Creatinine Clearance 41 mL/min (70-130); Calcium 11.1 mg/dL (7.8-10.44); Carbon Dioxide 24 mmol/L (23-31); Chloride 110 mmol/L (98-107); Estimated GFR-MDRD 52; Glucose 89 mg/dL (83-110); Potassium 3.6 mmol/L (3.5-5.1); Sodium 143 mmol/L (136-145)
[2018-06-27] MEDS ORDERED: Levothyroxine Sodium 50 MCG TAB PO SCH (06:00)
[2018-06-27] MEDS: Flecainide 50 MG TAB PO SCH (07:51)
[2018-06-27] MEDS: Cyclobenzaprine 10 MG TAB PO SCH ×2 (07:51→14:33)
[2018-06-27] MEDS ORDERED: Allopurinol 300 MG TAB PO SCH (09:00)
[2018-06-27] MEDS ORDERED: Multivitamin W/ Minerals 1 TAB PO SCH (09:00)
[2018-06-27] MEDS ORDERED: Prevnar 13-Val Conj/PF 0.5 ML SYRINGE IM ONE (09:00)
--- NOTE | 2018-06-27 10:35 | PDOC.FM ---
- Subjective Subjective: No acute events overnight. Pt reports he does not have much recollection of the fall yesterday. Otherwise, he denies any pain, weakness, numbness, tingling, CP , SOB, NVDC. - Objective Vital Signs & Weight: Vital Signs (12 hours) Temp Pulse Resp BP BP BP BP 06/27/18 09:00 107 H 148/96 H 153/92 H 142/88 H 06/27/18 07:07 98.2 F 96 20 136/82 06/27/18 03:20 98.3 F 95 16 161/89 H 06/26/18 22:52 98.0 F 103 H 16 158/93 H Pulse Ox 06/27/18 09:00 06/27/18 07:07 97 06/27/18 03:20 96 06/26/18 22:52 97 Weight Weight 68.447 kg I&O: 06/26/18 06/27/18 06/28/18 06:59 06:59 06:59 Intake Total 2390 Output Total 1000 Balance 1390 Result Diagrams: 06/27/18 04:20 06/27/18 04:20 Phys Exam - Physical Examination Constitutional: NAD HEENT: PERRLA, sclera anicteric Neck: no nodes, no JVD Respiratory: no wheezing, no rales, no rhonchi, clear to auscultation bilateral Cardiovascular: no significant murmur, no rub, irregular Gastrointestinal: soft, non-tender, no distention, positive bowel sounds Musculoskeletal: no edema, pulses present Neurological: non-focal, moves all 4 limbs Psychiatric: normal affect Deviation from normal: Scalp laceration, well approximated, dry blood present Dx/Plan (1) Elevated troponin Code(s): R74.8 - ABNORMAL LEVELS OF OTHER SERUM ENZYMES Status: Acute (2) Afib Code(s): I48.91 - UNSPECIFIED ATRIAL FIBRILLATION Status: Acute (3) Fall Code(s): W19.XXXA - UNSPECIFIED FALL, INITIAL ENCOUNTER Status: Acute (4) CKD (chronic kidney disease) Code(s): N18.9 - CHRONIC KIDNEY DISEASE, UNSPECIFIED Status: Acute (5) Gout Code(s): M10.9 - GOUT, UNSPECIFIED Status: Acute (6) HTN (hypertension) Code(s): I10 - ESSENTIAL (PRIMARY) HYPERTENSION Status: Acute (7) Hypercalcemia Code(s): E83.52 - HYPERCALCEMIA Status: Acute (8) Hypothyroid Code(s): E03.9 - HYPOTHYROIDISM, UNSPECIFIED Status: Acute - Plan Plan: Indeterminate troponin - 0.039, 0.057-->.051 - denies chest pain. - EKG a fib w/RVR, rate 118 - His rate has been less than 110 currently and denies any symptoms - likely related to demand vs recent cardioversion - cards consulted, appreciate recommendations Mechanical fall - 2/2 unsteady gait - CT head negative - s/p scalp arvind in ED for laceration - PT consulted Hypercalcemia - recent workup on last admission included Vit D and PTH (low) - IVF NS - AM Draw 11. - concern for malignant etiology with monocytosis and hypercalcemia - discuss with PCP, stable for OP workup A fib w/ RVR - s/p successful cardioversion 06/22/18 and discharged in NSR - continue flecainide. - Dr Dean consulted Chronic normocytic anemia - Hgb 11.4, has been noted on recent admission as well, outpatient workup Leukopenia - WBC 3.8. This is chronic, >3 years. Outpatient workup as above. CKD3 - Cr 1.54, at baseline compared to prior admission, slightly improved with IVF Gout - continue home allopurinol Hypothyroid - recent TSH wnl - continue home synthroid HTN - continue home benazapril Dementia - continue home memantine Diet: HH Ppx: SCDs (held home elequis for now) PCP: Campos Dispo: admit to telemetry for observation Dispo: Stable, will await cardiology recs and consider DC to home with OP titration of medications and continued workup of hypercalcemia. Addendum - Attending - Attending Attestation Date/Time: 06/28/18 0913 I personally evaluated the patient and discussed the management with Dr. Stiles. I agree with the History, Examination, Assessment and Plan documented above with any addition or exceptions noted below.
[2018-06-27 12:28] VITALS: BP 154/79; TEMP 98.1
--- NOTE | 2018-06-27 13:18 | PRG ---
DATE OF SERVICE: 06/27/2018 REASON FOR CONSULTATION: Recurrent atrial fibrillation. PRIMARY WIND INSTRUMENT REPAIRER: Dr. Lukasz Jerez. HISTORY OF PRESENT ILLNESS: Mr. Mckeon is a delightful 83-year-old gentleman, recently was hospitalized with atrial fibrillation with a rapid rate. He underwent transesophageal echo and cardioversion and placed on flecainide. Despite that, however, the patient has gone back into atrial fibrillation sometimes with a rapid ventricular response. The patient is currently resting comfortably, unaware of any irregularity to his heart rhythm. PHYSICAL EXAMINATION: VITAL SIGNS: The patient's blood pressure is 154/79, pulse is in the 90s with atrial fibrillation. LUNGS: Clear. CARDIAC: Irregularly irregular. ABDOMEN: Soft and nontender. EXTREMITIES: No clubbing or cyanosis. There is no edema. ASSESSMENT: 1. Atrial fibrillation, paroxysmal, now recurrent despite flecainide with recent cardioversion. 2. Hypertension. PLAN: 1. Stop flecainide. 2. Add metoprolol long acting. 3. Options would be consideration for amiodarone followed by cardioversion at some point versus rate control. Keep the patient overnight. Dr. Jerez to see tomorrow for further disposition. Job ID: [id number]
[2018-06-28 18:08] LABS: Ionized Calcium 6.6 mg/dL (4.5-5.6)
== END 2018-06-27 16:12 | disposition home or self-care (01) ==
LOC: ERS 10:05 → 2SW 17:31
PROVIDERS: ADMIT Student in an Organized Health Care Education/Training Program; ATTEND Student in an Organized Health Care Education/Training Program
DX: R74.8 Abnormal levels of other serum enzymes (principal); I12.9 Hypertensive chronic kidney disease with stage 1 through stage 4 chronic kidney disease, or unspecified chronic kidney disease; N18.3 Chronic kidney disease, stage 3 (moderate); D63.1 Anemia in chronic kidney disease; I48.0 Paroxysmal atrial fibrillation; S01.01XA Laceration without foreign body of scalp, initial encounter; M43.12 Spondylolisthesis, cervical region; D72.819 Decreased white blood cell count, unspecified; G30.9 Alzheimer's disease, unspecified; F02.80 Dementia in other diseases classified elsewhere, unspecified severity, without behavioral disturbance, psychotic disturbance, mood disturbance, and anxiety; M10.9 Gout, unspecified; E83.52 Hypercalcemia; E03.9 Hypothyroidism, unspecified; Z88.1 Allergy status to other antibiotic agents; Z88.0 Allergy status to penicillin; Z88.2 Allergy status to sulfonamides; Z79.899 Other long term (current) drug therapy; Z79.01 Long term (current) use of anticoagulants; Z87.891 Personal history of nicotine dependence; W18.30XA Fall on same level, unspecified, initial encounter; Y92.009 Unspecified place in unspecified non-institutional (private) residence as the place of occurrence of the external cause
CPT/HCPCS: 12004; 70450; 72125; 80048; 80053; 82330; 82553; 84484 ×2; 85025 ×2; 93005; 96361 ×3; 96374; 97116; 97139; 99285; G0378 ×2; 36415; J2001